=== PATIENT | female | born 1955 | race Hispanic/Latino ===

== ENCOUNTER → 2022-08-07 | Outpatient (CLI) | payer OTHER | END | disposition home or self-care (01) | LOC: RAH 08:49 | PROVIDERS: ATTEND Family Medicine | DX: R10.11 Right upper quadrant pain (principal) | CPT/HCPCS: 76700 ==

== ENCOUNTER 2023-01-16 07:26 | Day surgery (SDC) | payer OTHER, MEDICARE ==
[2023-01-10 09:41] LABS: BASOPHILS # (AUTO) 0.05 K/uL (0.00-0.20); BASOPHILS % (AUTO) 0.9 % (0.0-5.0); EOSINOPHILS # (AUTO) 0.13 K/uL (0.00-0.70); EOSINOPHILS % (AUTO) 2.3 % (0.0-8.0); HEMATOCRIT 43.6 % (36-48); IMMATURE GRANULOCYTE ABSOLUTE 0.02 K/uL (0-1); LYMPHOCYTES # (AUTO) 1.4 K/uL (1.0-4.8); LYMPHOCYTES % (AUTO) 24.2 % (21.0-51.0); MEAN CORPUSCULAR HEMOGLOBIN 28.7 pg (27.0-33.0); MEAN CORPUSCULAR HGB CONC 33.3 g/dL (32.0-36.0); MEAN CORPUSCULAR VOLUME 86.2 fL (79-99); MONOCYTES # (AUTO) 0.4 K/uL (0.1-1.0); MONOCYTES % (AUTO) 7.5 % (3.0-13.0); NEUTROPHILS # (AUTO) 3.6 K/uL (1.8-7.7); NEUTROPHILS % (AUTO) 64.7 % (40.0-77.0); PLATELET COUNT (AUTO) 208 K/uL (130-400); RED BLOOD CELL COUNT(AUTO) 5.06 MIL/uL (4.00-5.50); RED CELL DISTRIBUTION WIDTH 13.1 % (11.0-15.5); WHITE BLOOD COUNT (AUTO) 5.6 K/uL (4.8-10.8)
[2023-01-10 09:44] LABS: ADD UA MICROSCOPIC YES; APPEARANCE,URINE CLEAR (CLEAR); BILIRUBIN,URINE NEGATIVE (NEGATIVE); COLOR,URINE LIGHT-YELLOW (YELLOW); GLUCOSE, URINE (UA) >=1000 mg/dL (NEGATIVE); KETONES,URINE NEGATIVE (NEGATIVE); LEUKOCYTE ESTERASE ,URINE 25 Leu/uL (NEGATIVE); NITRATE,URINE NEGATIVE (NEGATIVE); OCCULT BLOOD,URINE NEGATIVE (NEGATIVE); PROTEIN,URINE NEGATIVE (NEGATIVE); UROBILINOGEN,URINE 0.2 mg/dL (0.2-1.0)
[2023-01-10 09:45] LABS: BACTERIA,URINE RARE /HPF (None Seen); RBC,URINE 0-1 /HPF (0-1); SQUAMOUS EPITHELIAL CELL,UR RARE /HPF (0-2)
[2023-01-10 09:48] LABS: CREATININE 0.5 mg/dL (0.5-1.5)
[2023-01-10 09:50] LABS: INR 0.94 (0.85-1.15); PROTHROMBIN TIME 10.9 SEC (9.6-11.6)
[2023-01-10 09:52] LABS: PARTIAL THROMBOPLASTIN TIME 27.3 SEC (26.3-35.5)
[2023-01-10 09:56] LABS: B-TYPE NATRIURETIC PEPTIDE 29 pg/mL (0-100)
[2023-01-10 10:26] VITALS: BP 164/85; PULSE 81; RESP 20
[2023-01-16] VITALS (8 sets, daily range): BP systolic 100–162; BP diastolic 55–80; PULSE 67–77; RESP 13–16
[~2023-01-16] VITALS: Ht 160 cm; Wt 58.6 kg
[~2023-01-16 07:26] MED LIST: ASPI-1443 PO; ATOR20TA65 PO; CITA10TA89 PO; CLOP75TA32 PO; EMPA25TA PO; ERGO500093 PO; GABA-529 PO; GLIM2TAB30 PO; LISI5TAB21 PO; METF-446 PO; METO-408 PO; NITR0.4T50 SL; SITA25TA5 PO
[2023-01-16] MEDS ORDERED: ISOVUE-300 100 ML VIAL IV ONE (07:27)
[2023-01-16] MEDS ORDERED: MIDAZOLAM HCL 1 MG/ML 2ML VIAL ONE (08:38)
[2023-01-16] MEDS ORDERED: NICARDIPINE 25MG INJ IV ONE (08:38)
[2023-01-16] MEDS ORDERED: SODIUM BICARB 50MEQ 50ML VIAL 50 ML ONE (08:38)
[2023-01-16] MEDS ORDERED: NITROGLYCERIN 50MG VIAL ONE (08:38)
[2023-01-16] MEDS ORDERED: FENTANYL CITRATE PF 50 MCG/1 ML 2ML VIAL ONE (08:38)
[2023-01-16] MEDS ORDERED: HEPARIN 10,000 UNIT/10ML (1,000 UNIT/ML) VIAL ONE (08:38)
[2023-01-16] MEDS ORDERED: LIDOCAINE HCL 400MG/20ML VIAL ONE (08:38)
[2023-01-16] MEDS ORDERED: 0.9%NACL 1000ML 1,000 ML IV ONE (08:43)
[2023-01-16] MEDS ORDERED: BIVALIRUDIN 250 MG/VIAL IV ONE (09:07)
[2023-01-16] MEDS ORDERED: DEXTROSE 50%-WATER 50 ML DISP.SYRIN IV PRN (10:00)
[2023-01-16] MEDS ORDERED: 0.9% NACL 500ML IV.SOLN 500 ML IV SCH ×2 (10:00→11:30)
[2023-01-16] MEDS ORDERED: GLUCAGON 1MG KIT 1 MG ML IM PRN (10:00)
== END 2023-01-16 13:00 | disposition home or self-care (01) ==
LOC: DAH 07:26
PROVIDERS: ATTEND Internal Medicine Cardiovascular Disease
DX: I25.110 Atherosclerotic heart disease of native coronary artery with unstable angina pectoris (principal); I10 Essential (primary) hypertension; E78.5 Hyperlipidemia, unspecified; E11.59 Type 2 diabetes mellitus with other circulatory complications; Z79.01 Long term (current) use of anticoagulants; Z79.899 Other long term (current) drug therapy; Z98.890 Other specified postprocedural states; Z98.51 Tubal ligation status; Z83.3 Family history of diabetes mellitus; Z79.82 Long term (current) use of aspirin
CPT/HCPCS: 80048; 83880; 85025; 85610; 85730; 81001; 36415; 71045; 93005; 93458; 82948 ×2; C1894 ×3; C1760; Q9967; J3010; J3490 ×4; J7030; J1644 ×2; J2250; A4215; A4335; A4222; A4221; A4663; A4216; A4606; A4223 ×3; A4554; 96360; 96361; 99156; 99157; J0583

== ENCOUNTER → 2023-07-11 | Outpatient (CLI) | payer OTHER, MEDICARE | END | disposition home or self-care (01) | LOC: RAH 07:49 | PROVIDERS: ATTEND Orthopaedic Surgery | DX: M25.512 Pain in left shoulder (principal) | CPT/HCPCS: 73221 ==

== ENCOUNTER → 2024-03-06 | Outpatient (CLI) | payer OTHER, MEDICARE ==
[2024-03-06 12:27] LABS: CREATININE 0.8 mg/dL (0.5-1.0); POTASSIUM 5.2 mmol/L (3.5-5.1)
== END | disposition home or self-care (01) ==
LOC: LAB 08:36
PROVIDERS: ATTEND Internal Medicine Cardiovascular Disease
DX: G90.3 Multi-system degeneration of the autonomic nervous system (principal)
CPT/HCPCS: 36415; 80048